=== PATIENT | female | born 2000 | race Caucasian/White ===

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

== ENCOUNTER 2020-09-26 23:38 | Emergency (ER) | payer OTHER ==
[~2020-09-26 23:38] MED LIST: Bromphed DM PO; DOXYCYCLINE HY100 M2 PO; FLONASE 0.05% N16 GM; IBUPROFEN600 MG PO; IBUPROFEN800 MG PO; MACROBID 100 M100 M1 PO; OMNICEF 300 MG300 MG PO; ROBITUSSIN AC480 ML PO; TESSALON PERLE100 MG PO; VENTOLIN HFA 66.7 GM INH; VIBRAMYCIN100 MG PO; ZITHROMAX250 MG PO; ZOFRAN ODT 4 MG4 MG PO; ZOFRAN4 MG PO
[2020-09-27 00:22] LABS: HEMOGLOBIN 12.7 gm/dl (12.3-15.3); RED BLOOD COUNT 4.07 M/UL (4.00-5.10); WHITE BLOOD COUNT 11.7 K/UL (4.5-11.0)
[2020-09-27 00:41] LABS: BUN/CREATININE RATIO 33 (0-10)
== END 2020-09-27 01:45 | disposition home or self-care (01) ==
LOC: ER1 23:38
PROVIDERS: Emergency Medicine
DX: O20.0 Threatened abortion (principal); Z88.5 Allergy status to narcotic agent; Z88.1 Allergy status to other antibiotic agents; Z3A.10 10 weeks gestation of pregnancy
CPT/HCPCS: 80053; 83690; 84702; 85025; 85610; 85730; 86850; 86900; 86901; 96374; 96375; 99284

== ENCOUNTER 2020-10-13 18:45 | Emergency (ER) | payer OTHER ==
[2020-10-13] MEDS ORDERED: ADULT GLYCERIN1 EACH PR (20:53)
== END 2020-10-13 22:00 | disposition home or self-care (01) ==
LOC: ER1 18:45
DX: O99.611 Diseases of the digestive system complicating pregnancy, first trimester (principal); K59.00 Constipation, unspecified; O99.331 Smoking (tobacco) complicating pregnancy, first trimester; F17.210 Nicotine dependence, cigarettes, uncomplicated; Z88.1 Allergy status to other antibiotic agents; Z88.5 Allergy status to narcotic agent; Z3A.12 12 weeks gestation of pregnancy
CPT/HCPCS: 81001; 99284

== ENCOUNTER 2020-10-29 23:44 | Emergency (ER) | payer OTHER ==
[~2020-10-29 23:44] MED LIST changes: +ADULT GLYCERIN1 EACH PR
[2020-10-30 00:28] LABS: HEMOGLOBIN 13.1 gm/dl (12.3-15.3); RED BLOOD COUNT 4.09 M/UL (4.00-5.10); WHITE BLOOD COUNT 16.2 K/UL (4.5-11.0)
[2020-10-30 00:42] LABS: BUN/CREATININE RATIO 24 (0-10)
== END 2020-10-30 03:15 | disposition home or self-care (01) ==
LOC: ER1 23:44
PROVIDERS: Physician Assistant
DX: O99.612 Diseases of the digestive system complicating pregnancy, second trimester (principal); K59.00 Constipation, unspecified; O99.332 Smoking (tobacco) complicating pregnancy, second trimester; F17.200 Nicotine dependence, unspecified, uncomplicated; Z79.899 Other long term (current) drug therapy; Z3A.16 16 weeks gestation of pregnancy
CPT/HCPCS: 76815; 80048; 81001; 84702; 85025; 99284

== ENCOUNTER 2020-12-04 06:01 | Outpatient (CLI) | payer OTHER | END 2020-12-04 10:06 | disposition home or self-care (01) | LOC: GENOP 06:01 → EDSTATUS 10:19 | DX: O99.891 Other specified diseases and conditions complicating pregnancy (principal); R10.2 Pelvic and perineal pain; Z3A.20 20 weeks gestation of pregnancy | CPT/HCPCS: 81001; 83518; G0463 ==

== ENCOUNTER 2020-12-08 04:27 | Emergency (ER) | payer OTHER ==
[2020-12-08 06:58] LABS: HEMOGLOBIN 11.2 gm/dl (12.3-15.3); RED BLOOD COUNT 3.5 M/UL (4.00-5.10); WHITE BLOOD COUNT 12.6 K/UL (4.5-11.0)
[2020-12-08 07:40] LABS: BUN/CREATININE RATIO 17 (0-10)
== END 2020-12-08 11:12 | disposition home or self-care (01) ==
LOC: ER1 04:27
PROVIDERS: Family Medicine
DX: O99.891 Other specified diseases and conditions complicating pregnancy (principal); R10.31 Right lower quadrant pain; Z88.5 Allergy status to narcotic agent; Z3A.21 21 weeks gestation of pregnancy
CPT/HCPCS: 76700; 80053; 81001; 82150; 83605; 83690; 85025; 96374; 99284; J2405

== ENCOUNTER 2021-02-26 21:42 | Outpatient (CLI) | payer OTHER | END 2021-02-26 23:49 | disposition home or self-care (01) | LOC: GENOP 21:42 | DX: O62.9 Abnormality of forces of labor, unspecified (principal); O36.8190 Decreased fetal movements, unspecified trimester, not applicable or unspecified; O88.119 Amniotic fluid embolism in pregnancy, unspecified trimester; Z3A.00 Weeks of gestation of pregnancy not specified | CPT/HCPCS: 59025; 81001; 82731; 83518 ==

== ENCOUNTER 2021-03-06 21:13 | Outpatient (CLI) | payer OTHER | END 2021-03-07 02:05 | disposition home or self-care (01) | LOC: GENOP 21:13 | DX: O47.03 False labor before 37 completed weeks of gestation, third trimester (principal); O99.333 Smoking (tobacco) complicating pregnancy, third trimester; F17.200 Nicotine dependence, unspecified, uncomplicated; Z88.5 Allergy status to narcotic agent; Z88.1 Allergy status to other antibiotic agents; Z79.899 Other long term (current) drug therapy; Z3A.33 33 weeks gestation of pregnancy | CPT/HCPCS: 81001; 87086; 96360; G0463; J7030 ==

== ENCOUNTER 2021-03-07 17:32 | Outpatient (CLI) | payer OTHER | END 2021-03-08 | disposition home or self-care (01) | LOC: GENOP 17:32 | DX: O47.03 False labor before 37 completed weeks of gestation, third trimester (principal); O99.333 Smoking (tobacco) complicating pregnancy, third trimester; F17.200 Nicotine dependence, unspecified, uncomplicated; Z88.5 Allergy status to narcotic agent; Z88.1 Allergy status to other antibiotic agents; Z3A.34 34 weeks gestation of pregnancy | CPT/HCPCS: 81001; 96360; 96361; 96367; 96372; J0595; J0696; J3105 ==

== ENCOUNTER 2021-03-19 10:14 | Observation (INO) | payer OTHER ==
[~2021-03-19] VITALS: Ht 160 cm; Wt 92.1 kg
[2021-03-19 11:30] LABS: HEMOGLOBIN 10.9 gm/dl (12.3-15.3); RED BLOOD COUNT 3.5 M/UL (4.00-5.10); WHITE BLOOD COUNT 9.5 K/UL (4.5-11.0)
[2021-03-19 11:52] LABS: BUN/CREATININE RATIO 11 (0-10)
[2021-03-19] MEDS ORDERED: FERROUS SULFAT325 MG PO (13:02)
[2021-03-19] MEDS ORDERED: FERROUS SULFAT325 M2 PO (13:02)
[2021-03-19] MEDS ORDERED: ZOFRAN4 MG PO (13:03)
== END 2021-03-19 22:50 | disposition home or self-care (01) ==
LOC: GENOP 10:14 → OB 11:00
PROVIDERS: ADMIT Obstetrics & Gynecology
DX: O99.891 Other specified diseases and conditions complicating pregnancy (principal); R06.01 Orthopnea; Z20.822 Contact with and (suspected) exposure to COVID-19; Z87.39 Personal history of other diseases of the musculoskeletal system and connective tissue; Z88.5 Allergy status to narcotic agent; Z87.891 Personal history of nicotine dependence; Z3A.35 35 weeks gestation of pregnancy; O99.013 Anemia complicating pregnancy, third trimester; D64.9 Anemia, unspecified
CPT/HCPCS: ECHO; 36415; 71045; 80053; 81001; 83880; 85025; 93005; 93306; G0378; G0463; Q9967; U0002

== ENCOUNTER 2021-03-28 18:09 | Outpatient (CLI) | payer OTHER ==
[~2021-03-28 18:09] MED LIST changes: +FERROUS SULFAT325 M2 PO; +FERROUS SULFAT325 MG PO
== END 2021-03-29 04:20 | disposition home or self-care (01) ==
LOC: GENOP 18:09
DX: R07.81 Pleurodynia (principal)
CPT/HCPCS: 81001; 93005; 96360; 96361; 96366; 96374; 96375; J0595; J2405; J7120

== ENCOUNTER 2021-04-04 13:50 | Outpatient (CLI) | payer OTHER | END 2021-04-04 19:49 | disposition home or self-care (01) | LOC: GENOP 13:50 | PROVIDERS: Obstetrics & Gynecology | DX: O47.1 False labor at or after 37 completed weeks of gestation (principal); O99.333 Smoking (tobacco) complicating pregnancy, third trimester; F17.200 Nicotine dependence, unspecified, uncomplicated; O99.013 Anemia complicating pregnancy, third trimester; D64.9 Anemia, unspecified; Z88.1 Allergy status to other antibiotic agents; Z88.5 Allergy status to narcotic agent; Z79.899 Other long term (current) drug therapy; Z3A.38 38 weeks gestation of pregnancy | CPT/HCPCS: 80307; 81001; 96360; 96361; 96367; 96374; 96375; J0595; J0696; J7120 ==

== ENCOUNTER 2021-04-16 12:59 | Outpatient (CLI) | payer OTHER ==
[2021-04-16 13:36] LABS: HEMOGLOBIN 12.1 gm/dl (12.3-15.3); RED BLOOD COUNT 3.85 M/UL (4.00-5.10); WHITE BLOOD COUNT 11.3 K/UL (4.5-11.0)
== END 2021-04-16 14:28 | disposition home or self-care (01) ==
LOC: GENOP 12:59
PROVIDERS: Obstetrics & Gynecology
DX: O36.60X0 Maternal care for excessive fetal growth, unspecified trimester, not applicable or unspecified (principal); Z3A.00 Weeks of gestation of pregnancy not specified; Z88.1 Allergy status to other antibiotic agents
CPT/HCPCS: 36415; 81001; 85025

== ENCOUNTER 2021-04-18 01:32 | Outpatient (CLI) | payer OTHER ==
[2021-04-18 02:44] LABS: HEMOGLOBIN 10.9 gm/dl (12.3-15.3); RED BLOOD COUNT 3.62 M/UL (4.00-5.10); WHITE BLOOD COUNT 11.1 K/UL (4.5-11.0)
[2021-04-18 03:05] LABS: BUN/CREATININE RATIO 21 (0-10)
[2021-04-19] MEDS ORDERED: DOCUSATE SODIU100 MG PO (08:27)
[2021-04-19] MEDS ORDERED: IBUPROFEN600 MG PO (08:27)
== END 2021-04-18 03:58 | disposition left against medical advice (07) ==
LOC: GENOP 01:32
PROVIDERS: Obstetrics & Gynecology
DX: O99.891 Other specified diseases and conditions complicating pregnancy (principal); R03.0 Elevated blood-pressure reading, without diagnosis of hypertension; R51.9 Headache, unspecified; O99.333 Smoking (tobacco) complicating pregnancy, third trimester; F17.200 Nicotine dependence, unspecified, uncomplicated; Z88.5 Allergy status to narcotic agent; Z88.1 Allergy status to other antibiotic agents; Z79.899 Other long term (current) drug therapy; Z3A.39 39 weeks gestation of pregnancy
CPT/HCPCS: 36415; 80053; 80307; 81001; 85025; 96360; 96374; J2405

== ENCOUNTER 2021-04-19 05:01 | Inpatient (IN) | payer OTHER ==
[2021-04-19] MEDS ORDERED: DOCUSATE SODIU100 MG PO (08:27)
[2021-04-19] MEDS ORDERED: IBUPROFEN600 MG PO (08:27)
[2021-04-20 05:57] LABS: HEMOGLOBIN 10.4 gm/dl (12.3-15.3)
== END 2021-04-21 15:59 | disposition home or self-care (01) | DRG 788 ==
LOC: OB 05:01
PROVIDERS: Obstetrics & Gynecology; ADMIT Obstetrics & Gynecology
PROC: 4A1HXCZ Monitoring of Products of Conception, Cardiac Rate, External Approach (ICD-10-PCS; 2021-04-19)
PROC: 10D00Z1 Extraction of Products of Conception, Low, Open Approach (ICD-10-PCS; principal; 2021-04-19 08:00)
DX: O36.63X0 Maternal care for excessive fetal growth, third trimester, not applicable or unspecified (principal); Z3A.39 39 weeks gestation of pregnancy; Z37.0 Single live birth; Z88.8 Allergy status to other drugs, medicaments and biological substances; Z88.6 Allergy status to analgesic agent; Z20.822 Contact with and (suspected) exposure to COVID-19
CPT/HCPCS: 36415; 80053; 80307; 81001; 82800; 85014; 85018; 85025; 96360; 96374; C9113; J0690; J1885; J2210; J2250; J2274; J2405; J2590; J3010; J7120; U0003

== ENCOUNTER 2021-08-18 19:56 | Emergency (ER) | payer OTHER ==
[~2021-08-18 19:56] MED LIST changes: +DOCUSATE SODIU100 MG PO
== END 2021-08-18 23:42 | disposition left against medical advice (07) ==
LOC: ER1 19:56
DX: R11.2 Nausea with vomiting, unspecified (principal); R42 Dizziness and giddiness; Z88.5 Allergy status to narcotic agent; Z88.8 Allergy status to other drugs, medicaments and biological substances
CPT/HCPCS: 99282

== ENCOUNTER 2022-03-25 15:33 | Outpatient (CLI) | payer OTHER ==
[2022-03-25 17:09] LABS: HEMOGLOBIN 10.7 gm/dl (12.3-15.3); RED BLOOD COUNT 3.65 M/UL (4.00-5.10); WHITE BLOOD COUNT 10.8 K/UL (4.5-11.0)
== END 2022-03-25 17:53 | disposition home or self-care (01) ==
LOC: GENOP 15:33 → OB 15:33 → GENOP 16:12 → OB 16:12 → GENOP 17:53 → OB 17:53
PROVIDERS: Obstetrics & Gynecology
DX: O26.899 Other specified pregnancy related conditions, unspecified trimester (principal); M54.9 Dorsalgia, unspecified; Z3A.00 Weeks of gestation of pregnancy not specified
CPT/HCPCS: 81001; 82962; 85025; 93005; 96360; G0378

== ENCOUNTER 2022-06-08 04:11 | Outpatient (CLI) | payer OTHER ==
[2022-06-08] MEDS ORDERED: MACROBID 100 M100 MG PO (09:27)
== END 2022-06-08 11:40 | disposition home or self-care (01) ==
LOC: GENOP 04:11
PROVIDERS: Obstetrics & Gynecology
DX: O9A.313 Physical abuse complicating pregnancy, third trimester (principal); O23.43 Unspecified infection of urinary tract in pregnancy, third trimester; N39.0 Urinary tract infection, site not specified; O47.03 False labor before 37 completed weeks of gestation, third trimester; Z3A.34 34 weeks gestation of pregnancy
CPT/HCPCS: 80307; 81001; 87086